=== PATIENT | male | born 1995 | race Caucasian/White ===

== ENCOUNTER 2017-07-29 17:07 | Emergency (ER) | payer BC ==
[~2017-07-29] VITALS: Ht 177.8 cm; Wt 94.0 kg
[~2017-07-29 17:07] MED LIST: HYDR-762 PO; IBUP800T25 PO
[2017-07-29 17:09] VITALS: Ht 177.8 cm; Wt 94.0 kg
[2017-07-29] MEDS ORDERED: morphine 4 MG/ML VIAL IV STA (20:12)
[2017-07-29] MEDS ORDERED: SOD CHLORIDE 0.9% 1,000 ML IV STA (20:13)
--- NOTE | 2017-07-29 20:59 | RADRPT ---
PROCEDURE: XR Right Shoulder CLINICAL INDICATION: Dislocation TECHNIQUE: An AP and a Y-view were submitted. COMPARISON: 04/19/2016 FINDINGS: Osseous structures: The osseous elements again appear intact. Joint spaces: There is an anterior inferior glenohumeral dislocation. The AC joint appears unremark able. Soft tissues: appear unremarkable. IMPRESSION: 1. Interval development of an anterior inferior right glenohumeral dislocation. 2. No fracture is identified. Physician Ruddy Date Time Electronically viewed and signed by Physician Ruddy on 07/29/2017 20:58 RH/
[2017-07-29 21:00] VITALS: BP 120/68; PULSE 65; RESP 16
[2017-07-29] MEDS ORDERED: PROPOFOL 200 MG INJ IV ONE (21:00)
--- NOTE | 2017-07-29 21:38 | RADRPT ---
PROCEDURE: XR Right Shoulder CLINICAL INDICATION: Post reduction TECHNIQUE: An AP and a Y-view were submitted. COMPARISON: Comparison to the study done earlier on the same date FINDINGS: Osseous structures: appear well mineralized and intact with no fracture or destructive process iden tified. Joint spaces: The glenohumeral dislocation is found satisfactorily reduced. The AC joint appears un remarkable. Soft tissues: appear unremarkable. IMPRESSION: 1. Interval satisfactory reduction of the glenohumeral dislocation. 2. No fracture is identified. Physician Ruddy Date Time Electronically viewed and signed by Rj Resendiz Physician on 07/29/2017 21:37 RH/
--- NOTE | 2017-07-29 21:44 | ERD ---
ER Documentation Chief Complaint Date/Time DATE: 07/29/17 TIME: 21:41 Chief Complaint right shoulder dislocation today, dislocated same shoulder HPI This is a 22-year-old male who presents to the emergency room for evaluation of right-sided shoulder pain. This patient states that he is shoulder pain started after he hit his shoulder against a small ledge. He does state that he feels it is dislocated and has had a previous dislocation in the past. The patient denies any numbness or tingling in his arm and states any movement exacerbates his pain ROS All systems reviewed and are negative except as per history of present illness. Medications Home Meds Discontinued Scripts Ibuprofen* (Motrin*) 800 Mg Tab, 800 MG PO Q8, #10 TAB Prov:RUDY MCGEE MD 04/19/16 Hydrocodone Bit-Acetaminophen* (Sterling*) 10-325 Mg Tablet, 1 TAB PO Q8 Y for PAIN , #10 TAB Prov:RUDY MCGEE MD 04/19/16 Allergies Allergies: Coded Allergies: No Known Allergy (Unverified , 07/29/17) PMhx/Soc Medical and Surgical Hx: pt denies Medical Hx, pt denies Surgical Hx Hx Miscellaneous Medical Probl: Yes (right shoulder dislocation 2011) Hx Alcohol Use: No Hx Substance Use: No Hx Tobacco Use: No Smoking Status: Never smoker Physical Exam Vitals Vital Signs Date Time Temp Pulse Resp B/P Pulse Ox O2 Delivery O2 Flow Rate FiO2 07/29/17 21:00 65 16 120/68 Room Air 07/29/17 20:40 100 3.0 07/29/17 20:35 44 18 128/98 100 Room Air 07/29/17 17:09 98.2 78 18 156/70 98 Physical Exam INITIAL VITAL SIGNS: Reviewed by me GENERAL: The patient is well developed and appropriate for usual state of health in no apparent distress HEENT: Pupils equal, round, and reactive to light. EOMI. There is no scleral icterus. NECK: C-spine is soft and supple, there is no meningismus. There is no cervical lymphadenopathy. LUNGS: Clear to auscultation bilaterally. There are no rales, wheezes or rhonchi. HEART: Regular rate and rhythm, no murmurs, clicks, rubs or gallops. ABDOMEN: Soft, non-tender, non-distended. There are bowel sounds in all four quadrants. No rebound or guarding. EXTREMITIES: Visible deformity noted at the right glenohumeral joint, there is no peripheral cyanosis or edema. No focal swelling or erythema. NEUROLOGICAL: The patient moves all four extremities with 5/5 strength. Cranial nerves II - XII are intact. Normal gait. Alert and oriented SKIN: There is no apparent rash or petechiae. HEME/LYMPHATIC: There is no evidence of excessive bruising or lymphedema. PSYCHIATRIC: The patient does not appear anxious or depressed. Results 24 hrs Current Medications Medications (Trade) Dose Ordered Sig/Mimi Route PRN Reason Start Time Stop Time Status Last Admin Dose Admin Morphine Sulfate 4 mg 4 mg ONCE STAT IV 07/29/17 20:12 07/29/17 20:13 DC 07/29/17 20:20 Sodium Chloride (NS) 1,000 ml @ 1,000 mls/hr Q1H STAT IV 07/29/17 20:13 07/29/17 21:12 DC 07/29/17 20:21 Propofol (Diprivan) 100 mg ONCE ONCE IV 07/29/17 21:00 07/29/17 21:01 DC 07/29/17 20:40 Procedures/MDM X-ray Shoulder 3V Interpreted by me: Bones: No fracture Joints: Anterior-inferior dislocation Foreign body: None Reduction by me: Anesthesia: Propofol 200 mg Location: Right shoulder Technique: Gentle traction and manipulation Results: Religion of normal anatomic positioning Neurovascularly intact post procedure. A right shoulder immobilizer splint was applied by the tech under my direct supervision. After splint application, the patient was appreciated to have a normal distal neurovascular examination. [Splint Assessment: Neurovascularly intact post splint placement with good fit.] Procedural Sedation: Pre-assessment performed. See preceding complete history and physical for details. Time out performed. See sedation documentation for details. Medication(s): Propofol 200 mg Complications: No hypoxic or apneic events Recovered without incident. Greater than 15 minutes of face to face time included in sedation and recovery. This 22-year-old male presents to the ER for evaluation of right shoulder pain. When I evaluated this patient he did have right anterior inferior glenohumeral dislocation. The patient was given 100 mg of propofol with almost no effect of sedation, he was subsequently given a second 100 mg bolus of propofol with adequate sedation. The patient did have a shoulder reduced. No hypoxic events. Please see procedure note above. The patient will be discharged at this time and a shoulder immobilizer with instructions to follow- up with orthopedic surgery. He will be discharged home with Motrin, and Primitivo for breakthrough pain Departure Diagnosis: Primary Impression: Recurrent dislocation, right shoulder Condition: Stable ELLA RAMÍREZ DO Jul 29, 2017 21:44
[2017-07-29] MEDS ORDERED: IBUP800T25 PO (21:45)
[2017-07-29] MEDS ORDERED: HYDR-906 PO (21:45)
== END 2017-07-29 22:30 | disposition home or self-care (01) ==
LOC: E/R 17:07
DX: M24.411 Recurrent dislocation, right shoulder (principal)
CPT/HCPCS: 23650; 73030; 96374; 99285; J2270; J7030